=== PATIENT | male | born 1935 | race Caucasian/White ===

== ENCOUNTER 2020-02-16 10:45 | Emergency (ER) | payer OTHER, MEDICAID, SELFPAY ==
[~2020-02-16] VITALS: Ht 165.1 cm; Wt 72.6 kg
[2020-02-16 10:45] VITALS: BP_SYST 114
--- NOTE | 2020-02-16 11:00 | NUR ---
Pt placed on tent at this time
--- NOTE | 2020-02-16 11:02 | NUR ---
Pt brought by self,A&Ox4, pt presents to ER with mild cough , pt was diagnosed with covid last ,pt is afebrile, respirations are even and unlabored, cap refill <3, pt speaking in full sentences, will cont to monitor.
--- NOTE | 2020-02-16 11:15 | NUR ---
Dr Carrion evaluating patient in the tent
[2020-02-16 11:30] VITALS: BP_SYST 114
--- NOTE | 2020-02-16 11:36 | NUR ---
Patient given written and verbal discharge instructions and verbalizes understanding. ER MD discussed with patient the results and treatment provided. Patient in stable condition. ID arm band removed. No Rx given. Patient educated on pain management and to follow up with PMD. Pain Scale 0/10. Opportunity for questions provided and answered. Medication side effect fact sheet provided.
== END 2020-02-16 11:36 | disposition home or self-care (01) ==
LOC: SED 10:45
DX: U07.1 COVID-19 (principal)
CPT/HCPCS: 99281

== ENCOUNTER 2020-03-04 16:56 | Emergency (ER) | payer OTHER, MEDICAID, SELFPAY ==
[~2020-03-04] VITALS: Ht 160 cm; Wt 72.6 kg
[2020-03-04 17:00] VITALS: BP_SYST 135
--- NOTE | 2020-03-04 17:00 | NUR ---
PT TO REMAIN IN ER TENT UNTIL ER BED BECOMES AVAILABLE
--- NOTE | 2020-03-04 17:05 | NUR ---
PT AAO AND AMBULATORY USING FWW TO AMBULATE REPORTING WORSENING COUGH FOR THE PAST 3 DAYS. PT REPORTS COUGH IS PRODUCTIVE IN NATURE. PT DENIES ANY PAIN.
--- NOTE | 2020-03-04 17:15 | NUR ---
ED MD GALLOWAY AT PT SIDE EVALUATING PT
[2020-03-04 17:30] VITALS: BP_SYST 135
--- NOTE | 2020-03-04 17:30 | NUR ---
Patient given written and verbal discharge instructions and verbalizes understanding. ER MD GALLOWAY discussed with patient the results and treatment provided. Patient in stable condition. ID arm band removed. Rx of PROMETHAZINE, DOXYCYCLENE given. Patient educated on pain management and to follow up with PMD. Opportunity for questions provided and answered. Medication side effect fact sheet provided.
== END 2020-03-04 17:30 | disposition home or self-care (01) ==
LOC: SED 16:56
DX: J40 Bronchitis, not specified as acute or chronic (principal)
CPT/HCPCS: 99283

== ENCOUNTER 2021-05-30 11:45 | Emergency (ER) | payer OTHER, MEDICAID ==
[~2021-05-30] VITALS: Ht 162.6 cm; Wt 65.8 kg
[2021-05-30 11:52] VITALS: BP_SYST 146
[2021-05-30] MEDS ORDERED: IBUP-1969 PO (13:17)
[2021-05-30] MEDS ORDERED: ZIT250 PO (13:37)
[2021-05-30] MEDS ORDERED: PHEDM120 PO (13:37)
[2021-05-30] MEDS ORDERED: ALBU8.5H8 INH (13:37)
[2021-05-30 13:46] VITALS: BP_SYST 108
[2021-06-02] MEDS ORDERED: MULT-955 PO (08:07)
[2021-06-02] MEDS ORDERED: METO-542 PO (08:07)
[2021-06-02] MEDS ORDERED: MIRA50TA PO (08:07)
[2021-06-02] MEDS ORDERED: MEMA10TA PO (08:07)
[2021-06-02] MEDS ORDERED: TAMS-11 PO (08:07)
[2021-06-02] MEDS ORDERED: ASPI-1393 PO (08:07)
[2021-06-02] MEDS ORDERED: ESCI20TA PO (08:07)
[2021-06-02] MEDS ORDERED: LIP40 PO (08:07)
[2021-06-02] MEDS ORDERED: LISI2.5T48 PO (08:07)
[2021-06-02] MEDS ORDERED: CRAN1CAP5 PO (08:07)
[2021-06-02] MEDS ORDERED: VALP250S3 PO (11:22)
== END 2021-05-30 13:46 | disposition home or self-care (01) ==
LOC: SED 11:45
DX: J20.9 Acute bronchitis, unspecified (principal); Z20.822 Contact with and (suspected) exposure to COVID-19; Z79.899 Other long term (current) drug therapy
CPT/HCPCS: 36415; 71045; 93005; 99285